=== PATIENT | male | born 1930 | race Caucasian/White ===

== ENCOUNTER → 2019-11-16 | Outpatient (CLI) | payer OTHER | LOC: RAD 09:58 | PROVIDERS: ATTEND Neuromusculoskeletal Medicine & OMM | DX: M48.07 Spinal stenosis, lumbosacral region (principal); M25.78 Osteophyte, vertebrae; M48.02 Spinal stenosis, cervical region; M40.294 Other kyphosis, thoracic region; M46.86 Other specified inflammatory spondylopathies, lumbar region; G95.19 Other vascular myelopathies; Z96.643 Presence of artificial hip joint, bilateral; Z95.0 Presence of cardiac pacemaker ==

== ENCOUNTER 2020-08-01 17:34 | Inpatient (IN) | payer OTHER ==
[~2020-08-01] VITALS: Ht 170.2 cm; Wt 59.0 kg
[2020-08-01 17:54] VITALS: BP 122/73
[2020-08-01 20:21] LABS: ABSOLUTE NEUTROPHILS 4.4 thou/uL (1.4-8.2); BASOPHILS 0.3 % (0.0-2.0); EOSINOPHILS 2.7 % (0.0-3.0); HEMATOCRIT 45.2 % (42.0-52.0); HEMOGLOBIN 15.5 gm/dL (14.0-18.0); LYMPHOCYTES 17.9 % (24.0-44.0); MCH 33.1 pg (26.0-34.0); MCHC 34.2 g/dL (28.0-37.0); MCV 96.8 fL (80.0-100.0); MONOCYTES 10.9 % (1.0-8.0); PLATELET COUNT 146 thou/uL (150-400); POLYS 68.2 % (36.0-66.0); RBC 4.67 mil/uL (4.50-6.00); RDW 16.7 % (10.5-14.5); WBC 6.5 thou/uL (4.0-11.0)
[2020-08-01 20:38] LABS: CALCIUM 8.9 mg/dL (8.5-10.1); CREATININE 0.9 mg/dL (0.7-1.3); POTASSIUM 3.9 mmol/L (3.5-5.1)
[2020-08-01 20:45] LABS: ALBUMIN 3.9 g/dL (3.4-5.0); DIRECT BILIRUBIN 0.4 mg/dL (<0.1-0.2); TOTAL BILIRUBIN 2.1 mg/dL (0.2-1.0); TOTAL PROTEIN 6.8 g/dL (6.4-8.2)
[2020-08-01 22:04] LABS: URINE BILIRUBIN NEGATIVE (Negative); URINE BLOOD TRACE (Negative); URINE CLARITY CLEAR; URINE COLOR YELLOW; URINE GLUCOSE-RANDOM* NEGATIVE (Negative); URINE KETONES NEGATIVE (Negative); URINE LEUKOCYTES-REFLEX NEGATIVE (Negative); URINE NITRITE-REFLEX NEGATIVE (Negative); URINE PROTEIN (DIPSTICK) NEGATIVE (Negative); URINE SPECIFIC GRAVITY 1.015 (1.005-1.035)
[2020-08-01] MEDS ORDERED: ACYCLOVIR 800800 MG PO (22:32)
[2020-08-01] MEDS ORDERED: ASPIR-TRIN325 MG PO (22:33)
[2020-08-01] MEDS ORDERED: LIPITOR 20 MG T20 M1 PO (22:33)
[2020-08-01] MEDS ORDERED: VYZULTA5 ML EA. EYE (22:34)
[2020-08-01] MEDS ORDERED: VOLTAREN GEL 1100 G1 TOP (22:34)
[2020-08-01 22:55] VITALS: BP 128/78
[2020-08-01 23:42] VITALS: BP 157/95
[2020-08-02 03:43] VITALS: BP 134/79
--- NOTE | 2020-08-02 04:38 | NUR ---
PT ADMIITED FROM ER AROUND 2230PM. A&O X4, VSS AFEBRILE. LEGALLY BLIND AND FOND DU LAC. UNLABORED ON RA. PT HAS HX MULTIPLE MYELOMA AND WAS SENT HERE BY HIS DR FOR NEUROLOGY CONSULT RE MULTIPLE MYELOMA, INCREASED LE WEAKNESS, AND SPINAL STENOSIS. NS AT 77 X1 LITER INFUSING R ARM. FEW SCABS NOTED LES . 2 IV INFILTRATION SITES NOTED LEFT FA FROM ER. INSTRUCTED PT ON FALL PRECAUTIONS. ASSISTING WITH MOBILITY IN BED. PT STATED HE HAS TO USE WHEELCHAIR. HE CANNOT BARE WT OR TRANSFER WITHOUT HELP. NO C/O PAIN SO FAR. HE IS RESTING QUIETLY. NO S/S DISTRESS. MRI SCREEN DONE AND FAXED . PT HAS A PACEMAKER. COPY OF [employer] PACEMAKER CARD WITH MODEL NUMBERS FAXED TO MRI.
[2020-08-02] MEDS ORDERED: VITAMIN D325 MC1 PO (04:58)
[2020-08-02] MEDS ORDERED: LIDODERM1 EACH TRANSDERM (05:00)
--- NOTE | 2020-08-02 05:33 | NUR ---
PT RESTING QUIETLY PRESENTLY. NO S/S DISTRESS.
[2020-08-02 07:14] VITALS: BP 124/75
--- NOTE | 2020-08-02 14:19 | NUR ---
PT STATED HE WANTS MORE INFORMATION ON CODE STATUS, AND WILL LIKE TO TALK TO DR. COLUNGA. DR. COLUNGA MADE AWARE. THANH FROM CARDIOLOGY CALLED AND SAID FROM THEIR STAND POINT, PT IS OKAY TO GET MRI CALLED. SHE ALREADY CALLED [facility] AND MRI TEAM TO MADE THEM AWARE. PT FAMILY IN ROOM VISITING, UPDATED ABPUT MRI STATUS. WILL CONTINUE TO MONITOR.
--- NOTE | 2020-08-02 14:26 | NUR ---
INITIAL ASSESSMENT: Received consult for discharge planning. ZHANG reviewed chart and spoke with nursing and attending physician. Pt was admitted from home due to leg weakness/spinal stenosis. Pt with hx of multiple myeloma. Neurosurgery consulted today. Pt is scheduled to have an MRI tomorrow at 1330. ZHANG met with pt and son-in-law at bedside. Introduced role of ZHANG. Pt is alert/orientated x 4. Pt is legally blind and hard of hearing. Pt has bilateral hearing aids. Pt reports that he and his live together in a ground level apt. 3 steps to enter their home through the garage. Pt has a cane and walker to assist as needed. Pt also has a w/c at home. Pt's has Parkinson's and hx of meningitis. Pt helps take care of his . Pt's children live locally and check on pt and several times throughout the day. Pt's PCP is Dr. Rogers. Pt was recently at [facility]. Pt's family has hired home care services. Pt's son-in-law is unsure of name of home care provider. Pt and family are interested in HH care when discharged. Options discussed. Pt may have VA benefits. SW provided name of [facility], as they have a contract with the [facility]. Pt's son-in-law to discuss with pt's family. PT/OT consulted. Pt may benefit from a 5N eval. ZHANG is following to assist as needed with discharge planning.
[2020-08-02 15:19] VITALS: BP 114/67; BP 1147/67
[2020-08-02 19:59] VITALS: BP 120/68
[2020-08-03 04:30] VITALS: BP 116/76
--- NOTE | 2020-08-03 07:13 | NUR ---
Pt. stated he slept well during the night. C/O mild pain but denies need for pain med when offered. Voided per urinal. SCD's in place and bed alarm on.
[2020-08-03 07:20] VITALS: BP 125/76
--- NOTE | 2020-08-03 10:33 | NUR ---
PT ALERT AND ORIENTED X4, [place] AND BLIND. DENIES ANY PAIN, NUMBNESS AND [place]INGL[place]. ON ROOM AIR, NO SIGNS OF DISTRESS NOTED. PT SON IN LAW VISITING. UODATED ABOUT PT CARE. PT WILL BE GOING DOWN FOR MRI AT 1330. FALL PRECAUTIONS IN PLACE. WILL CONTINUE TO MONITOR.
--- NOTE | 2020-08-03 11:55 | NUR ---
ZHANG reviewed chart and spoke with nursing and attending physician. Pt is scheduled to have MRI today at 1330. SW discussed case with 5N occupational therapist rehab manager. OT ordered to evaluate pt. Pt appears to be a good candidate for 5N. Awaiting MRI results and input from neurosurgery. Will need insurance auth for post-acute care. ZHANG is following to assist as needed with discharge planning.
[2020-08-03 15:47] VITALS: BP 113/74
[2020-08-03 19:30] VITALS: BP 122/80
[2020-08-04 04:05] VITALS: BP 119/73
--- NOTE | 2020-08-04 04:20 | NUR ---
Pt. stated he slept well during the night. Denies need for pain med. Bed alarm on and SCD's in place. Voids per urinal.
[2020-08-04 07:24] VITALS: BP 137/92
--- NOTE | 2020-08-04 12:03 | NUR ---
SW reviewed chart and spoke with nursing and attending physician. Pt had MRI yesterday. Pt has T9 compression fx with lesion. Hem/Onc and palliative care physician consulted. Pt is a DNR. SW is following to assist as needed with discharge planning.
[2020-08-04 15:06] VITALS: BP 133/83
[2020-08-04 19:11] VITALS: BP 123/84
[2020-08-05 03:43] VITALS: BP 130/85
--- NOTE | 2020-08-05 04:26 | NUR ---
Pt. assisted to get cleaned up at HS. He stated he slept better last night. Denies need for pain med stating he is not in pain unless when he moves in a certain position. Denies any other concern.
[2020-08-05 07:09] VITALS: BP 135/80
[2020-08-05] MEDS ORDERED: DEXAMETHASONE 44 M1 PO (10:40)
[2020-08-05] MEDS ORDERED: LIDOPATCH1 EACH TRANSDERM (10:40)
[2020-08-05] MEDS ORDERED: HYDROCODON-ACE1 EAC7 PO (10:40)
--- NOTE | 2020-08-05 14:42 | NUR ---
SW reviewed chart and spoke with nursing and attending physician. Pt is progressing toward goals for discharge. Palliative care physician met with pt and family to discuss plan of care and treatment goals. Pt does not wish to have any surgical interventions at this time. SW met with pt and family at bedside to follow up and further discuss discharge plan. Pt states that they have decided for pt to go home with HH, and then will transition to palliative care and hospice in the future. Pt states that his main goal is to be at home with his , as long as they can remain in their apt. Pt's dtr has been in touch with the [facility] regarding in-home care/services. Pt and spouse currently have private duty care through [facility]. Options provided for HH agencies. ZHANG discussed that [facility] has all levels of services that pt and spouse would need. Pt's family would like referral to be sent to [facility] for review. SW faxed referral and notified [facility] liaison. Plan is for pt to discharge home tomorrow with HH servivces. Finalized discharge orders/summary will need to be faxed to [facility] when available. Contact info for HH placed in pt's discharge summary. SW is available to assist should needs arise. [facility]--
[2020-08-05 14:49] VITALS: BP 135/80
[2020-08-05 15:10] VITALS: BP 127/89
--- NOTE | 2020-08-05 16:44 | NUR ---
ASSUMED CARE OF PT AT 0700. PT AOX4 NO ACUTE DISTRESS. PAIN CONTROLLED WITH MED REGIMEN. REPORTS PAIN WITH ACTIVITY OR AWKWARD MOVEMENT. SOCIALIZING WITH FAMILY AT BEDSIDE. WORKING WITH THERAPIES. CALLS OUT APPROPRIATELY. ANTICIPATE D/C W/ [facility] TOMORROW.
[2020-08-05 19:57] VITALS: BP 120/83
[2020-08-06 03:10] VITALS: BP 128/84
--- NOTE | 2020-08-06 05:49 | NUR ---
encouraged him to call for assist as needed. he struggles to move around in the bed at times. po hydrocodone allowed him to rest. he is planning on discharging today. careplan reviewed.
[2020-08-06 07:24] VITALS: BP 136/94
[2020-08-06 11:45] LABS: ABSOLUTE NEUTROPHILS 7.5 thou/uL (1.4-8.2); BASOPHILS 0.1 % (0.0-2.0); HEMATOCRIT 44.3 % (42.0-52.0); HEMOGLOBIN 15.5 gm/dL (14.0-18.0); LYMPHOCYTES 5.8 % (24.0-44.0); MCH 33.7 pg (26.0-34.0); MCV 96.5 fL (80.0-100.0); MONOCYTES 9.7 % (1.0-8.0); PLATELET COUNT 216 thou/uL (150-400); POLYS 84.4 % (36.0-66.0); RBC 4.59 mil/uL (4.50-6.00); RDW 16.3 % (10.5-14.5); WBC 8.9 thou/uL (4.0-11.0)
[2020-08-06 11:57] LABS: ALBUMIN 3.6 g/dL (3.4-5.0); CALCIUM 8.7 mg/dL (8.5-10.1); MAGNESIUM 2.3 mg/dL (1.8-2.4); TOTAL BILIRUBIN 3.1 mg/dL (0.2-1.0); TOTAL PROTEIN 6.4 g/dL (6.4-8.2)
[2020-08-06] MEDS ORDERED: METFORMIN HCL500 MG PO (12:28)
[2020-08-06] MEDS ORDERED: MIRALAX17 G1 PO (12:29)
--- NOTE | 2020-08-06 13:25 | NUR ---
ASSUMED PATIENT CARE AT 0700. A/O X4. GENERLIZED WEAKNESS. NO DISTRESS NOTED. DC TO HOME WITH HH NOW.
== END 2020-08-06 13:26 | disposition home health service (06) | DRG 552 ==
LOC: ER 17:34 → EROBS 22:51 → 3W 22:51
PROVIDERS: Emergency Medicine; Internal Medicine; ADMIT Hospitalist; ATTEND Hospitalist
DX: M48.00 Spinal stenosis, site unspecified (principal); C90.00 Multiple myeloma not having achieved remission; M48.54XA Collapsed vertebra, not elsewhere classified, thoracic region, initial encounter for fracture; G82.20 Paraplegia, unspecified; M51.36 Other intervertebral disc degeneration, lumbar region; M51.26 Other intervertebral disc displacement, lumbar region; Z66 Do not resuscitate; Z96.643 Presence of artificial hip joint, bilateral; E78.5 Hyperlipidemia, unspecified; E55.9 Vitamin D deficiency, unspecified; Z51.5 Encounter for palliative care; M48.04 Spinal stenosis, thoracic region; Z92.21 Personal history of antineoplastic chemotherapy; Z95.0 Presence of cardiac pacemaker; Z79.82 Long term (current) use of aspirin; Z79.899 Other long term (current) drug therapy
CPT/HCPCS: 10080